=== PATIENT | female | born 1955 | race American Indian/Alaskan Native ===

== ENCOUNTER 2017-12-23 06:37 | Day surgery (SDC) | payer BC ==
[2017-12-23 07:09] VITALS: RESP 14
[2017-12-23 07:20] VITALS: BMI 41.9
[2017-12-23] MEDS ORDERED: Simethicone 40 mg/0.6 ml Liquid (30 ml) ONE (07:52)
[2017-12-23] MEDS ORDERED: Propofol 10 mg/ml Inj (20 ML) ONE ×4 (08:07→10:10)
[2017-12-23] MEDS ORDERED: Sodium Chloride 0.9% 1,000 ML IV SCH (10:30)
[2017-12-23 11:39] VITALS: BP 132/84; PULSE 52; TEMP 98
[2017-12-23 11:46] VITALS: O2SAT 98
== END 2017-12-23 12:12 | disposition home or self-care (01) ==
LOC: ENDO 06:37
PROVIDERS: ATTEND Internal Medicine Gastroenterology
DX: Z12.11 Encounter for screening for malignant neoplasm of colon (principal); K21.9 Gastro-esophageal reflux disease without esophagitis; K29.50 Unspecified chronic gastritis without bleeding; D12.0 Benign neoplasm of cecum; K62.1 Rectal polyp; K64.8 Other hemorrhoids; E11.9 Type 2 diabetes mellitus without complications; I10 Essential (primary) hypertension; E78.5 Hyperlipidemia, unspecified
CPT/HCPCS: 43239; 45381; 45385; 88305; 88342; J0171; J2704; J7040 ×2

== ENCOUNTER 2018-09-15 07:35 | Emergency (ER) | payer BC ==
[2018-09-15 07:35] VITALS: BMI 41.9
[2018-09-15 07:46] VITALS: RESP 18
--- NOTE | 2018-09-15 08:07 | ED PDOC ---
Arrival/HPI - General Historian: Patient - History of Present Illness Narrative History of Present Illness (Text): 09/15/18 08:03 62F past medical history of Diabetes and OA s/p L hip replacement presents to emergency department w/ 2 day hx of R Lower back and R hip pain. Pain started sat morning with no inciting event. Pt says its worse with standing and laying flat, relieved with sitting. Pt has taken 2 aleve TID since thursday, no relief. Pt denies any loss of bowel movements, saddle paraesthesia, urinary incontinence. Denies CP/SOB/FC/NV, numbness/tingling, radiating pains down legs, headaches, loss of vision, or any inciting trauma. 09/15/18 08:14 Time/Duration: < week Symptom Course: Unchanged Quality: Aching Context: Standing, Walking <Iain Ruth - Last Filed: 09/15/18 09:10> <Dalton Modi DO - Last Filed: 09/15/18 18:43> - General Chief Complaint: Back Pain Time Seen by Provider: 09/15/18 07:40 Past Medical History - Provider Review Nursing Documentation Reviewed: Yes - Infectious Disease Hx of Infectious Diseases: None - Tetanus Immunization Tetanus Immunization: Up to Date - Reproductive Menopause: Yes - Cardiac Hx Hypertension: Yes Hx Pacemaker: No - Pulmonary Hx Respiratory Disorders: No - Neurological Hx Paralysis: No - HEENT Hx HEENT Disorder: No - Renal Hx Renal Disorder: No - Endocrine/Metabolic Hx Diabetes Mellitus Type 2: Yes - Hematological/Oncological Hx Blood Transfusions: No Hx Blood Transfusion Reaction: No - Integumentary Hx Dermatological Disorder: No - Musculoskeletal/Rheumatological Hx Musculoskeletal Disorders: Yes (HERNIATED DISCS) - Gastrointestinal Hx Gastroesophageal Reflux: Yes - Genitourinary/Gynecological Hx Genitourinary Disorders: No - Psychiatric Hx Psychophysiologic Disorder: No Hx Substance Use: No - Surgical History Hx Joint Replacement: Yes (r hip 2010) - Anesthesia Hx Anesthesia Reactions: No Hx Malignant Hyperthermia: No - Suicidal Assessment Feels Threatened In Home Enviroment: No <Iain Ruth - Last Filed: 09/15/18 09:10> Family/Social History - Physician Review Nursing Documentation Reviewed: Yes Family/Social History: Unknown Family HX Smoking Status: Never Smoked Hx Alcohol Use: No Hx Substance Use: No Hx Substance Use Treatment: No <Iain Ruth - Last Filed: 09/15/18 09:10> Allergies/Home Meds <Iain Ruth - Last Filed: 09/15/18 09:10> <Dalton Modi DO - Last Filed: 09/15/18 18:43> Allergies/Adverse Reactions: Allergies No Known Allergies Allergy (Verified 09/15/18 07:46) Home Medications: Home Meds Medication Instructions Recorded Confirmed Esomeprazole Magnesium [Nexium] 40 mg PO QAM 04/24/14 09/15/18 Glipizide 10 mg PO QPM 04/24/14 09/15/18 Losartan [Cozaar] 100 mg PO QAM 04/24/14 09/15/18 Pregabalin [Lyrica] 50 mg PO QAM 04/24/14 09/15/18 Atorvastatin [Lipitor] 20 mg PO QAM 12/21/17 09/15/18 Sitagliptin Phos/Metformin HCl 1 each PO QAM 12/21/17 09/15/18 [Janumet Xr 100-1,000 mg Tablet] Review of Systems - Physician Review All systems were reviewed & negative as marked: Yes - Review of Systems Constitutional: absent: Fatigue, Fevers Eyes: absent: Vision Changes Respiratory: absent: SOB Cardiovascular: absent: Chest Pain, Syncope Gastrointestinal: absent: Abdominal Pain, Nausea, Vomiting Genitourinary Female: Other (denies incontinence) Musculoskeletal: Arthralgias (L hip), Back Pain, Myalgias. absent: Joint Swelling Skin: absent: Rash Neurological: absent: Headache, Dizziness <FarazIain - Last Filed: 09/15/18 09:10> Physical Exam Vital Signs Temp Pulse Resp BP Pulse Ox 09/15/18 07:44 98.1 F 62 18 114/71 100 Temperature: Afebrile Blood Pressure: Normal Pulse: Regular Respiratory Rate: Normal Appearance: Positive for: Non-Toxic, Uncomfortable Pain Distress: Moderate Mental Status: Positive for: Alert and Oriented X 3 - Systems Exam Head: Present: Atraumatic, Normocephalic Pupils: Present: PERRL Extroacular Muscles: Present: EOMI Mouth: Present: Moist Mucous Membranes Neck: Present: Normal Range of Motion. No: Meningeal Signs Respiratory/Chest: Present: Clear to Auscultation. No: Wheezes Cardiovascular: Present: Normal S1, S2. No: Murmurs Abdomen: No: Tenderness Back: Present: Paraspinal Tenderness (R L4L5 region), Other. No: CVA Tenderness (neg slump sign bilaterally, positive pain with Lumbar extension and rotation to the Left), Pain with Leg Raise Upper Extremity: Present: Normal Inspection. No: Tenderness Lower Extremity: Present: Other (pain with hip flexion, positive scour sign R side, pain with direct palpation of R sacroiliac joint) Neurological: Present: CN II-XII Intact, Speech Normal Skin: Present: Warm, Normal Color. No: Rashes Psychiatric: Present: Alert, Oriented x 3 <Iain Ruth - Last Filed: 09/15/18 09:10> Vital Signs Temp Pulse Resp BP Pulse Ox 09/15/18 07:44 98.1 F 62 18 114/71 100 <Dalton Modi DO - Last Filed: 09/15/18 18:43> Medical Decision Making ED Course and Treatment: 09/15/18 08:18 #Osteoarthritis of R Hip and Lumbar Spine #Lumbosacral Myofacial Strain -follow up L/s PA-Lat XRay -follow up R Hip Xray 2views pain unresponsive to NSAID-likely muscular spasm component to pain -Flexeril 10mg PO - RAD Interpretation Radiology Orders: 09/15/18 07:53 HIP MIN 2V W/ PELVIS LT [RAD] Stat LS SPINE AP/LAT [RAD] Stat <Iain Ruth - Last Filed: 09/15/18 09:10> ED Course and Treatment: 09/15/18 08:29 Impression: 62 year old female presents to the emergency department with complaints of right lower back pain and right hip pain since 2 days. In agreement with resident note which contains more details about the patient. Patient seen and evaluated with resident. Came up with plan and treatment together. Plan: -- Flexeril -- X-ray right hip -- X-ray LS Spine - RAD Interpretation Radiology Orders: 09/15/18 07:53 LS SPINE AP/LAT [RAD] Stat 09/15/18 08:11 HIP MIN 2V W/ PELVIS RT [RAD] Stat - Medication Orders Current Medication Orders: Discontinued Medications Cyclobenzaprine HCl (Flexeril) 10 mg PO STAT STA Stop: 09/15/18 07:59 Last Admin: 09/15/18 08:13 Dose: 10 mg <Dalton Modi DO - Last Filed: 09/15/18 18:43> - PA / [employer] / Resident Statement SADAF has reviewed & agrees with the documentation as recorded. / has examined the patient and agrees with the treatment plan. - Scribe Statement The provider has reviewed the documentation as recorded by the Prachiibe Surya lacey with Ferny All medical record entries made by the Ben were at my direction and personally dictated by me. I have reviewed the chart and agree that the record accurately reflects my personal performance of the history, physical exam, medical decision making, and the department course for this patient. I have also personally directed, reviewed, and agree with the discharge instructions and disposition. <Dalton Modi DO - Last Filed: 09/15/18 18:43> Disposition/Present on Arrival - Present on Arrival Any Indicators Present on Arrival: No History of DVT/PE: No History of Uncontrolled Diabetes: No Urinary Catheter: No History of Decub. Ulcer: No History Surgical Site Infection Following: None - Disposition Have Diagnosis and Disposition been Completed?: Yes Disposition Time: 09:09 Patient Plan: Discharge <Iain Ruth - Last Filed: 09/15/18 09:10> <Dalton Modi DO - Last Filed: 09/15/18 18:43> - Disposition Diagnosis: Osteoarthritis of lumbar spine, Back pain Disposition: HOME/ ROUTINE Condition: GOOD Discharge Instructions (ExitCare): Low Back Pain (DC), Degenerative Disc Disease (DC) Additional Instructions: INDERJIT ARIZMENDI, thank you for letting us take care of you today. Your provider was Dalton Modi DO and you were treated for back pain. The emergency medical care you received today was directed at your acute symptoms. If you were prescribed any medication, please fill it and take as directed. It may take several days for your symptoms to resolve. Return to the Emergency Department if your symptoms worsen, do not improve, or if you have any other problems. Please contact your doctor or call one of the physicians/clinics you have been referred to that are listed on the Patient Visit Information form that is included in your discharge packet. Bring any paperwork you were given at discharge with you along with any medications you are taking to your follow up visit. Our treatment cannot replace ongoing medical care by a primary care provider outside of the emergency department. Thank you for allowing the [facility] team to be part of your care today. Follow up with your primary care doctor this week for re-evaluation and further management. Prescriptions: Cyclobenzaprine [Cyclobenzaprine HCl] 10 mg PO Q8 PRN #20 tab PRN Reason: Muscle Spasm Referrals: [facility], [Non-Staff] - Follow up with primary Forms: [employer] (Ukrainian)
[2018-09-15 09:55] VITALS: BP 112/75; PULSE 78; TEMP 97.8; O2SAT 99
--- NOTE | 2018-09-15 10:47 | RAD ---
Date of service: 09/15/2018 PROCEDURE: Radiographs of the Lumbar Spine. HISTORY: Unspecified back pain. No history of recent/ related trauma providedin COMPARISON: No prior. FINDINGS: BONES: Mild dextroscoliosis. No listhesis. No fracture. DISC SPACES: Multilevel degenerative changes primarily disc space narrowing and vacuum disc phenomenon at multiple levels. The OTHER FINDINGS: Right HARRY. Severe degenerative changes incompletely visualized left hip. IMPRESSION: No acute findings related to/ accounting for the clinical presentation.
--- NOTE | 2018-09-15 10:47 | RAD ---
Date of service: 09/15/2018 PROCEDURE: Right hip HISTORY: r hip pain, s/p replacement COMPARISON: None TECHNIQUE: Standard protocol for this study/examination. FINDINGS: Anatomic alignment of components of right HARRY. No radiographic evidence of loosening. Severe degenerative changes left hip including joint space narrowing, subchondral cyst formation and sclerosis. IMPRESSION: No significant or acute findings to account for/ related to the clinical presentation. Additional benign and/or incidental findings described above.
== END 2018-09-15 09:40 | disposition home or self-care (01) ==
LOC: ED 07:35
DX: M54.5 Low back pain (principal); M47.816 Spondylosis without myelopathy or radiculopathy, lumbar region; E11.9 Type 2 diabetes mellitus without complications; I10 Essential (primary) hypertension

== ENCOUNTER 2019-01-04 09:00 | Outpatient (CLI) | payer BC | END 2019-01-04 09:01 | disposition home or self-care (01) | LOC: RAD 09:00 ==